=== PATIENT | female | born 1995 | race Caucasian/White ===

== ENCOUNTER 2016-05-12 19:37 | Emergency (ER) | payer OTHER ==
[2016-05-12 20:00] VITALS: BP 102/66; PULSE 67; TEMP 97.7; BMI 30.1
--- NOTE | 2016-05-12 20:58 | PDOC ---
History of Present Illness - General Chief Complaint: Pain Stated Complaint: RT HAND PAIN Time Seen by Provider: 05/12/16 20:18 History Source: Patient Exam Limitations: No Limitations - History of Present Illness Initial Comments: 05/12/16 20:53 Chief complaint: Right hand pain that started 2 days ago History of present illness: Patient is a 20-year-old female here today complaining of right dorsal hand pain after having to do a lot a chopping with a knife at her job 2 days ago. He reports that she took ibuprofen and pain has resolved. Patient denies any numbness of her hand or any numbness of her wrist. Patient denies any other complaints. Patient wants to know to return back to work. She reports that she is right hand dominant. Patient denies any weakness of her right hand. 05/12/16 20:54 05/13/16 12:46 Occurred: reports: other (2 days ago) Severity: reports: moderate (rt. hand pain ) Upper Extremity Pain Location: right: hand (dorsal right hand ) Method of Injury: reports: other (using a knife at work to chop things) Extremity Pain Location - Extremity Pain Location Extremity Pain Locations: right: hand (dorsal aspect) Past History - Past Medical History Allergies/Adverse Reactions: Allergies Allergy/AdvReac Type Severity Reaction Status Date / Time Penicillins Allergy Verified 05/12/16 19:49 Home Medications: Ambulatory Orders NK [No Known Home Medication] 05/12/16 Diabetes: Yes Disorders: Yes (UTIs) - Reproductive History (#): 0 Para: 0 - Immunization History Immunization Up to Date: Yes - Psycho/Social/Smoking Cessation Hx Anxiety: No Suicidal Ideation: No Smoking History: Never smoked Have you smoked in the past 12 months: No Number of Cigarettes Smoked Daily: 0 Hx Alcohol Use: No Drug/Substance Use Hx: No Substance Use Type: None Review of Systems - Review of Systems Able to Perform ROS?: Yes Constitutional: No: Symptoms Reported HEENTM: No: Symptoms Reported Respiratory: No: Symptoms reported Cardiac (ROS): No: Symptoms Reported ABD/GI: No: Symptoms Reported : No: Symptoms Reported Musculoskeletal: Yes: Joint Pain (rt. dorsal hand pain started 2 days ago resolved now) Integumentary: No: Symptoms Reported Neurological: No: Symptoms reported *Physical Exam - Vital Signs Last Vital Signs Temp Pulse Resp BP Pulse Ox 97.7 F 67 14 102/66 100 05/12/16 19:54 05/12/16 19:54 05/12/16 19:54 05/12/16 19:54 05/12/16 19:54 - Physical Exam General Appearance: Yes: Appropriately Dressed Respiratory/Chest: positive: Lungs Clear, Normal Breath Sounds Cardiovascular: positive: Regular Rhythm, Regular Rate, S1, S2 Comments:: 05/12/16 20:56 radial pulse 4 + rt. Extremity: positive: Normal Capillary Refill, Normal Inspection, Normal Range of Motion, Other (able to make a fist, no decreased strength). negative: Tender Integumentary: positive: Normal Color Neurologic: positive: Normal Response, Respond to painful stimul, Other ( negative tinel/phalen rt. ). negative: Sensory Deficit (rt. hand ) Medical Decision Making - Medical Decision Making 05/12/16 20:57 Patient is a 20-year-old female here today complaining of right dorsal hand pain after having to do a lot a chopping with a knife at her job. He reports that she took ibuprofen and pain has resolved. Patient denies any numbness of her hand or any numbness of her wrist. Patient denies any other complaints. Patient wants to know to return back to work. right dorsal hand pain resolved PLAN: pt. august return to work 05/13/16 12:47 *DC/Admit/Observation/Transfer Diagnosis at time of Disposition: Hand pain, right - Discharge Dispostion Disposition: HOME Condition at time of disposition: Stable - Referrals Referrals: Karen Mcgraw [Primary Care Provider] - - Patient Instructions Additional Instructions: Fpllow With your primary doctor next week for further clearance to return to work return to emergency room if any weakness or numbness of hand or wrist Avoid doing repetitive tasks using her right hand Patient voiced understanding of discharge instructions and all questions were answered Print Language: SAMI - Post Discharge Activity Work/School Note: Back to Work
== END 2016-05-12 21:06 | disposition home or self-care (01) ==
LOC: JERFT 19:37
DX: M79.641 Pain in right hand (principal); E11.9 Type 2 diabetes mellitus without complications; Z87.440 Personal history of urinary (tract) infections
CPT/HCPCS: 99281-25

== ENCOUNTER 2016-10-14 12:14 | Emergency (ER) | payer OTHER ==
[2016-10-14 12:21] VITALS: BP 101/64; PULSE 61; TEMP 98.2; BMI 30.7
--- NOTE | 2016-10-14 13:53 | PDOC ---
History of Present Illness - General Chief Complaint: Sore Throat Stated Complaint: THROAT PAIN Time Seen by Provider: 10/14/16 13:03 - History of Present Illness Initial Comments: 10/14/16 13:48 CHIEF COMPLAINT: HISTORY OF PRESENT ILLNESS: 20 yo F with history of "thyroid problems" presents to [facility] with throat pain x 1 month. Patient reports she has not been followed by a primary care doctor due to lack of insurance. Patient denies any difficulty speaking, swallowing, or breathing. Denies any fever, nausea, vomiting, diarrhea. She states that she feels like "there's something in my throat" and that "my tongue feels dry." PAST MEDICAL HISTORY: Denies past medical history FAMILY HISTORY: Denies SOCIAL HISTORY: Denies tobacco, alcohol, illicit drug use. SURGICAL HISTORY: Denies ALLERGIES: NPCN REVIEW OF SYSTEMS General/Constitutional: Denies fever or chills. Denies weakness, weight change. HEENT: Denies change in vision. Denies ear pain or discharge. Denies sore throat. Cardiovascular: Denies chest pain or shortness of breath. Respiratory: Denies cough, wheezing, or hemoptysis. Gastrointestinal: Denies nausea, vomiting, diarrhea or constipation. Denies rectal bleeding. Genitourinary: Denies dysuria, frequency, or change in urination. Musculoskeletal: Denies joint or muscle swelling or pain. Denies neck or back pain. Skin and breasts: Denies rash or easy bruising. PHYSICAL EXAM General Appearance: Well-appearing, appropriately dressed. No apparent distress. HEENT: EOMI, PERRLA, normal ENT inspection, normal voice, TMs normal, pharynx normal. No conjunctival pallor. No photophobia, scleral icterus. Neck: Supple. Trachea midline. No tenderness, rigidity, carotid bruit, stridor , lymphadenopathy, or thyromegaly. Respiratory/Chest: Lungs CTAB. No shortness of breath, chest tenderness, respiratory distress, accessory muscle use. No crackles, rales, rhonchi, stridor , wheezing, dullness Cardiovascular: RRR. S1, S2. No JVD, murmur, bradycardia, tachycardia. Vascular Pulses: Dorsalis-Pedis (R): 2+, Dorsalis-Pedis (L): 2+ Gastrointestinal/Abdominal: Normal bowel sounds. Abdomen soft, non-distended. No tenderness or rebound tenderness. No organomegaly, pulsatile mass, guarding , hernia, hepatomegaly, splenomegaly. Lymphatic: No adenopathy, tenderness. Musculoskeletal/Extremities: Normal inspection. FROM of all extremities, normal capillary refill. Pelvis Stable. No CVA tenderness. No tenderness to extremities, pedal edema, swelling, erythema or deformity. Integumentary: Appropriate color, dry, warm. No cyanosis, erythema, jaundice or rash Neurologic: bander and cellophaner helper machine II-XII intact. Fully oriented, alert. Appropriate mood/affect. Motor strength 5/5. No appreciable EOM palsy, facial droop or sensory deficit. Past History - Past Medical History Allergies/Adverse Reactions: Allergies Allergy/AdvReac Type Severity Reaction Status Date / Time Penicillins Allergy Verified 10/14/16 12:21 Home Medications: Ambulatory Orders NK [No Known Home Medication] 05/12/16 Diabetes: No Disorders: Yes (UTIs) - Reproductive History (#): 0 Para: 0 - Immunization History Immunization Up to Date: Yes - Psycho/Social/Smoking Cessation Hx Anxiety: No Suicidal Ideation: No Smoking History: Never smoked Have you smoked in the past 12 months: No Number of Cigarettes Smoked Daily: 0 Hx Alcohol Use: No Drug/Substance Use Hx: No Substance Use Type: None *Physical Exam - Vital Signs Last Vital Signs Temp Pulse Resp BP Pulse Ox 98.2 F 61 20 101/64 99 10/14/16 12:19 10/14/16 12:19 10/14/16 12:19 10/14/16 12:19 10/14/16 12:19 Medical Decision Making - Medical Decision Making 10/14/16 13:50 20 yo F with hx of "thyroid problems" [facility] with discomfort in throat x 1 month. Patient VS stable. Patient appears well and is in no distress with no acute pain. Offered suggestions for follow up at [facility] with insurance assistance. Patient verbalized understanding and agrees to plan. *DC/Admit/Observation/Transfer Diagnosis at time of Disposition: Throat discomfort - Discharge Dispostion Disposition: HOME Condition at time of disposition: Stable Admit: No - Patient Instructions Additional Instructions: Si experimenta palpitaciones, fiebre, nuseas, vmitos, diarrea, dificultad para respirar o tragar, o cualquier nuevo o empeoramiento de los sntomas, por favor regrese a la lakhwinder de emergencias.
== END 2016-10-14 14:09 | disposition home or self-care (01) ==
LOC: JERFT 12:14
DX: J39.2 Other diseases of pharynx (principal)
CPT/HCPCS: 99281-25

== ENCOUNTER 2016-10-18 18:33 | Emergency (ER) | payer OTHER ==
[2016-10-18 18:36] VITALS: BP 112/62; PULSE 64; TEMP 98.6; BMI 28.3
[2016-10-18] MEDS ORDERED: NEOMYCIN/POLYMYXN/HC OTIC SOLUTION 10 ML BOTTLE ONE (18:58)
[2016-10-18] MEDS ORDERED: NEOMYCIN/POLYMYXN/HC OTIC SUSPENSION 10 ML BOTTLE AS ONE (19:02)
--- NOTE | 2016-10-18 19:13 | PDOC ---
History of Present Illness - General Chief Complaint: Ear Problem Stated Complaint: EAR PROBLEM Time Seen by Provider: 10/18/16 18:49 History Source: Patient Exam Limitations: No Limitations - History of Present Illness Initial Comments: 10/18/16 20:57 Patient here with complaints of right ear pain 2 days. States feels swelling to her throat, has some mild runny nose but no fevers, no drainage from ear, no one home is sick. Has used Tylenol with minimal resolved. Timing/Duration: unsure, 24 hours Severity: mild, moderate Associated Symptoms: reports: headaches, malaise. denies: fever/chills, nausea/ vomiting Past History - Travel Traveled outside of the country in the last 30 days: No Close contact w/someone who was outside of country & ill: No - Past Medical History Allergies/Adverse Reactions: Allergies Allergy/AdvReac Type Severity Reaction Status Date / Time Penicillins Allergy Verified 10/18/16 18:36 Home Medications: Ambulatory Orders NK [No Known Home Medication] 05/12/16 Diabetes: No Disorders: Yes (UTIs) - Reproductive History (#): 0 Para: 0 - Immunization History Immunization Up to Date: Yes - Psycho/Social/Smoking Cessation Hx Anxiety: No Suicidal Ideation: No Smoking History: Never smoked Have you smoked in the past 12 months: No Number of Cigarettes Smoked Daily: 0 Hx Alcohol Use: No Drug/Substance Use Hx: No Substance Use Type: None Review of Systems - Review of Systems Able to Perform ROS?: Yes Is the patient limited Tuvaluan proficient: Yes Constitutional: Yes: Symptoms Reported, See HPI. No: Chills, Fever HEENTM: Yes: Symptoms Reported, See HPI, Ear Pain. No: Ear Discharge Respiratory: Yes: See HPI. No: Symptoms reported, Cough, Wheezing Musculoskeletal: Yes: See HPI. No: Symptoms Reported Neurological: Yes: Symptoms reported, See HPI, Headache All Other Systems: Reviewed and Negative *Physical Exam - Vital Signs Last Vital Signs Temp Pulse Resp BP Pulse Ox 98.6 F 64 20 112/62 100 10/18/16 18:34 10/18/16 18:34 10/18/16 18:34 10/18/16 18:34 10/18/16 18:34 - Physical Exam General Appearance: Yes: Nourished, Appropriately Dressed, Apparent Distress, Mild Distress HEENT: positive: LORNA, Nasal Congestion, Rhinorrhea. negative: TMs Normal ( left TM with no driange / redness/ landmarks clear, RIGHT canal swollen with whitish drainage, TM intact but appears dull ), Pharyngeal Erythema, Tonsillar Exudate Neck: positive: Tender, Supple, Lymphadenopathy (R), Lymphadenopathy (L) Respiratory/Chest: positive: Lungs Clear, Normal Breath Sounds Musculoskeletal: positive: Vertebral Tenderness Integumentary: positive: Normal Color, Dry, Warm, Pale Neurologic: positive: under cutter II-XII NML intact, Fully Oriented, Alert, Normal Mood/ Affect, Normal Response, Motor Strength 5/5 *DC/Admit/Observation/Transfer Diagnosis at time of Disposition: Otitis externa Qualifiers: Otitis externa type: unspecified type Chronicity: acute Laterality: right Qualified Code(s): H60.501 - Unspecified acute noninfective otitis externa, right ear - Discharge Dispostion Disposition: HOME Condition at time of disposition: Stable Admit: No - Referrals Referrals: STAFF,NOT ON [Primary Care Provider] - - Patient Instructions Printed Discharge Instructions: DI for Otitis Externa Additional Instructions: Rest, lots of fluids; water, teas, soups Hot wet soaks to ear/hot packs may help relieve some pain May use [id number] anesthetic drops to ears to help relieve some pain Avoid getting water in ear, may use alcohol drops to help dry up any water retained in ears Severe using earplugs when swimming to avoid any water retention Continue ibuprofen or Tylenol for pain and fevers Cortisporin otic solution 3-5 drops 3 times a day for 5 days followup with private physician / ENT doctor in 2-3 days Return to emergency department or see private physician immediately for swelling , redness, from ears, or fevers, [place], muchos lquidos; Agua, ts, sopas Los empapados hmedos calientes a los envases de odo / caliente pueden ayudar a aliviar el dolor Puede usar gotas anestsicas sin receta en las orejas para ayudar a aliviar el dolor Evite tener agua en el odo, puede usar gotas de alcohol para ayudar a secar cualquier agua retenida en los odos Uso matthew de tapones para los odos al nadar para evitar retencin de agua Contine con ibuprofeno o Tylenol para el dolor y las fiebres Solucin nely de cortisporina 3-5 gotas 3 veces al da hannah 5 dodson Seguimiento con mdico privado / mdico ORL en 2-3 dodson Vuelva al departamento de urgencias o consulte a un mdico privado inmediatamente para detectar hinchazn, enrojecimiento, odos o fiebre, - Post Discharge Activity Work/School Note: Back to Work
== END 2016-10-18 19:21 | disposition home or self-care (01) ==
LOC: JERFT 18:33
DX: H60.501 Unspecified acute noninfective otitis externa, right ear (principal)
CPT/HCPCS: 99281-25

== ENCOUNTER 2017-03-16 20:37 | Emergency (ER) | payer OTHER ==
[2017-03-16 20:56] VITALS: BP 106/64; PULSE 79; TEMP 97.6; BMI 30.2
--- NOTE | 2017-03-16 20:57 | PDOC ---
Rapid Medical Evaluation Chief Complaint: Pain Time Seen by Provider: 03/16/17 20:53 Medical Evaluation: Allergies Allergy/AdvReac Type Severity Reaction Status Date / Time Penicillins Allergy Verified 10/18/16 18:36 03/16/17 20:53 I performed a brief in-person evaluation of this patient. The patient presents with a chief complaint of: epigastric pain x 4 days with nausea. Reports constipation with last bowel movement this am. Denies vomiting diarrhea or urinary symptoms. Cannot recall lmp Pertinent physical exam findings: NAD lungs: cta bilat abdomen: + mild epigastric tenderness I have ordered the following: urine hcg, urinalysis The patient will proceed to the Ed for further evaluation
--- NOTE | 2017-03-16 21:10 | PDOC ---
History of Present Illness - General Chief Complaint: Pain Stated Complaint: ABD PAIN Time Seen by Provider: 03/16/17 20:53 History Source: Patient - History of Present Illness Initial Comments: 03/16/17 21:36 21yo Swedish speaking woman with PMH of UTI's, ovarian cysts, and GERD who presents with 3 days of nausea and worsening epigastric pain radiating to her neck. She states the pain is worse after eating. No emesis. Denies fever, chills , DUNLAP. Cannot recall LMP. No prior surgeries or history of gallstones. Denies toxic habits. PMH:GERD - on Omeprazole 20mg qd PSx: None PCP: Dr. Karen Mcgraw Past History - Travel Traveled outside of the country in the last 30 days: No - Past Medical History Allergies/Adverse Reactions: Allergies Allergy/AdvReac Type Severity Reaction Status Date / Time Penicillins Allergy Verified 03/16/17 20:56 Home Medications: Ambulatory Orders Omeprazole 20 mg PO DAILY 03/16/17 COPD: No Diabetes: No Disorders: Yes (UTIs) - Reproductive History (#): 0 Para: 0 - Immunization History Immunization Up to Date: Yes - Suicide/Smoking/Psychosocial Hx Smoking History: Never smoked Have you smoked in the past 12 months: No Number of Cigarettes Smoked Daily: 0 Hx Alcohol Use: No Drug/Substance Use Hx: No Substance Use Type: None Review of Systems - Review of Systems Able to Perform ROS?: Yes Is the patient limited Monegasque proficient: Yes All Other Systems: Reviewed and Negative *Physical Exam - Vital Signs Last Vital Signs Temp Pulse Resp BP Pulse Ox 97.6 F 79 18 106/64 99 03/16/17 20:53 03/16/17 20:53 03/16/17 20:53 03/16/17 20:53 03/16/17 20:53 - Physical Exam General Appearance: Yes: Nourished, Appropriately Dressed HEENT: positive: Normal ENT Inspection Respiratory/Chest: positive: Lungs Clear, Normal Breath Sounds Cardiovascular: positive: Regular Rhythm, Regular Rate Gastrointestinal/Abdominal: positive: Normal Bowel Sounds, Soft, Tenderness ( mild tenderness epigstrum, (-)rebound, (-)guarding, (-)Brandon, obdurator, & psoas signs) Musculoskeletal: negative: CVA Tenderness Extremity: positive: Normal Inspection Neurologic: positive: Fully Oriented, Alert ED Treatment Course - LABORATORY CBC & Chemistry Diagram: 03/16/17 21:20 03/16/17 21:20 Medical Decision Making - Medical Decision Making 03/16/17 22:00 21yo woman with 3xdays epigastric pain. Differential includes, but not limited to vs gallbladder etiology vs pancreatitis vs gastritis vs PUD. Will order RUQ U/S to assess GB. Will give Famotidine and Zofran for symptomatic control. Plan: -beta HCG -UA -CMP, CBC, lipase, Trop 03/16/17 23:06 neg UA neg CBC and CMP unremarkable. Lipase wnl So far labs reassuring for any infectious process. 03/16/17 23:57 RUQ U/S: COMPARISON: No prior right upper quadrant sonogram. Correlation made to the 07/07 CT abdomen/ pelvis. FINDINGS: The liver measures 17.2 cm in craniocaudal length. Hepatic parenchyma is diffusely echogenic, consistent with steatosis. Please note that echogenic hepatic parenchyma decreases sonographic sensitivity in detecting hepatic mass lesions, although no discrete hepatic mass identified. Focal area of hypoechogenicity in the gallbladder fossa, probably represents a geographic area of fatty sparing. The gallbladder is not hydropic. No evidence of cholelithiasis, gallbladder wall thickening or pericholecystic fluid. There is no evidence of intrahepatic biliary ductal dilatation. The common bile duct is dilated, measuring 6 mm. The pancreas is obscured by bowel gas and cannot be assessed. The right kidney is normal in size measuring 10.8 cm in length with normal cortical echotexture and thickness. No right hydronephrosis. No free fluid identified in the right upper quadrant of the abdomen. The portal vein is patent, where imaged, with hepatopedal flow. The upper abdominal aorta and IVC are grossly unremarkable, where imaged. IMPRESSION: 1. No evidence of cholelithiasis or acute cholecystitis. 2. Mildly dilated common bile duct measuring 6 mm in diameter. No significant intrahepatic biliary ductal dilatation. Please correlate clinically, with serum biliary markers and LFTs. 3. Pancreas is obscured by bowel gas and cannot be assessed. Please correlate with pancreatic enzymes. 4. Hepatic steatosis. 03/17/17 00:21 Given normal LFTs and no acute findings on RUQ U/S, symptomatology likely due to gastritis. Patient reports nausea and pain improved. VSS are stable and patient is well-appearing. Will discharge home with close follow-up with GI. 03/17/17 00:34 03/17/17 00:45 *DC/Admit/Observation/Transfer Diagnosis at time of Disposition: Abdominal pain Qualifiers: Abdominal location: epigastric Qualified Code(s): R10.13 - Epigastric pain - Discharge Dispostion Disposition: HOME Condition at time of disposition: Stable Admit: No - Referrals Referrals: Karen Mcgraw [Primary Care Provider] - Donte Cortez MD [Staff Physician] - - Patient Instructions Additional Instructions: An ultrasound of your gallbladder and liver was done, which was normal. Please make an appointment with Dr. Donte Cortez, a bilingual elementary school teacher, to discuss your stomach pain in 1-2 weeks. You can take Tylenol for the pain. Avoid NSAIDs, such as Advil, Ibuprofen, and Motrin Please return to the Emergency Department if you have new, worsening, or concerning symptoms. - Post Discharge Activity
[2017-03-16 21:15] LABS: URINE APPEARANCE CLEAR; URINE BILIRUBIN NEGATIVE (NEGATIVE); URINE BLOOD NEGATIVE (NEGATIVE); URINE COLOR STRAW; URINE GLUCOSE (UA) NEGATIVE (NEGATIVE); URINE KETONE NEGATIVE (NEGATIVE); URINE NITRITE NEGATIVE (NEGATIVE); URINE PROTEIN NEGATIVE (NEGATIVE); URINE UROBILINOGEN NEGATIVE mg/dL (0.2-1.0)
--- NOTE | 2017-03-16 21:46 | PDOC ---
Attending Attestation - Resident Resident Name: Patrica Wright - ED Attending Attestation I have performed the following: I have examined & evaluated the patient, The case was reviewed & discussed with the resident, I agree w/resident's findings & plan, Exceptions are as noted - HPI HPI: 03/16/17 21:42 21yo F hx UTI and ovarian cyst p/w 3 days of progressive epigastric pain with nausea. No vomiting. Pain is worse after eating. Pain radiates from epigastric area up to her throat. Denies fevers, chills, CP, SOB, headache, focal weakness or numbness. Doesn't remember LMP. Denies vaginal bleeding or DC. Normal BM this morning. - Physicial Exam PE: 03/16/17 21:45 GENERAL: Awake, alert, and fully oriented, in no acute distress HEAD: No signs of trauma EYES: PERRLA, EOMI, sclera anicteric, conjunctiva clear ENT: Auricles normal inspection, hearing grossly normal, nares patent, oropharynx clear without exudates. Moist mucosa NECK: Normal ROM, supple, no lymphadenopathy, JVD, or masses LUNGS: Breath sounds equal, clear to auscultation bilaterally. No wheezes, and no crackles HEART: Regular rate and rhythm, normal S1 and S2, no murmurs, rubs or gallops ABDOMEN: Soft, +RUQ and epigastric ttp, normoactive bowel sounds. No guarding, no rebound. No masses EXTREMITIES: Normal range of motion, no edema. No clubbing or cyanosis. No cords, erythema, or tenderness NEUROLOGICAL: Normal speech, cranial nerves intact, negative pronator drift, 5/ 5 strength in all 4 extremities, normal sensation to light touch in all 4 extremities, normal cerebellar exam, normal gait, normal reflexes and tone SKIN: Warm, Dry, normal turgor, no rashes or lesions noted. - Medical Decision Making 03/16/17 22:21 21-year-old female presents with 3 days of epigastric abdominal pain gets worse after eating. Vitals are unremarkable. Exam with mild epigastric and right upper quadrant tenderness palpation. Differential includes but is not limited to cholecystitis versus biliary colic versus pancreatitis versus gastritis. Plan : -labs -UPT -UA -US -pain control/antiemetics -reassess 03/16/17 23:16 Labs and urine unremarkable. UPT negative. Ultrasound is pending. Patient appears more comfortable after medication.
[2017-03-16 21:50] LABS: BASOPHIL 0.2 % (0-2.0); EOSINOPHIL 0.9 % (0-4.5); MCH 30.8 pg (25.7-33.7); MCHC 33.6 g/dl (32.0-36.0); MEAN CELL VOLUME 91.7 fl (80-96); MEAN PLT VOLUME 9.5 fl (7.5-11.1); NEUTROPHILS 59.1 % (42.8-82.8); PLATELET COUNT 181 K/MM3 (134-434); RDW 13.4 % (11.6-15.6); WHITE BLOOD COUNT 9.1 K/mm3 (4.0-10.0)
[2017-03-16] MEDS ORDERED: ONDANSETRON 4 MG/2 ML VIAL IVPUSH ONE (21:50)
[2017-03-16] MEDS ORDERED: FAMOTIDINE 20 MG/50 ML IVPB 20 MG/50 ML MG IVPB ONE (21:53)
[2017-03-16] MEDS ORDERED: ONDANSETRON 4 MG/2 ML VIAL ONE (21:53)
[2017-03-16] MEDS ORDERED: FAMOTIDINE IV 20 MG/12 ML VIAL IVPUSH SCH (22:00)
[2017-03-16 22:15] LABS: ALBUMIN 3.7 g/dl (3.4-5.0); ANION GAP 5 (8-16); BILIRUBIN,TOTAL 0.3 mg/dL (0.2-1.0); CALCIUM 7.9 mg/dL (8.5-10.1); CO2 27 mmol/L (21-32); CREATININE 0.6 mg/dL (0.55-1.02); GLUCOSE,RANDOM 96 mg/dL (74-106); SGOT/AST 19 U/L (15-37); SGPT/ALT 32 U/L (12-78); TOT PROT 7.6 g/dl (6.4-8.2)
[2017-03-16 22:17] LABS: ALK PHOS 90 U/L (45-117); CPK 114 IU/L (26-192); TROPONIN I < 0.02 ng/ml (0.00-0.05)
[2017-03-17 11:22] LABS: URINE LEUK ESTERASE Negative (NEGATIVE)
== END 2017-03-17 01:18 | disposition home or self-care (01) ==
LOC: JER 20:37
PROC: 3E033GC Introduction of Other Therapeutic Substance into Peripheral Vein, Percutaneous Approach (ICD-10-PCS; principal; 2017-03-16)
DX: R10.13 Epigastric pain (principal); Z87.440 Personal history of urinary (tract) infections; Z87.19 Personal history of other diseases of the digestive system
CPT/HCPCS: 36415; 76705-TC; 80053; 81003; 82550; 83690; 84484; 84703; 85025; 96365; 96375; 99283-25